=== PATIENT | male | born 1940 | race Native Hawaiian/Other Pacific Islander ===

== ENCOUNTER 2019-10-27 11:52 | Emergency (ER) | payer OTHER ==
[~2019-10-27] VITALS: Ht 157.5 cm; Wt 68.0 kg
[2019-10-27 13:00] LABS: PLATELET COUNT 253 K/uL (142-355)
[2019-10-27 13:22] LABS: POTASSIUM 4.3 mmol/L (3.6-5.2)
[2019-10-27 14:04] VITALS: BP 143/70; TEMP 98.9
== END 2019-10-27 14:21 | disposition home or self-care (01) ==
LOC: ED 11:52
PROVIDERS: Family Medicine
DX: M19.011 Primary osteoarthritis, right shoulder (principal); W01.198A Fall on same level from slipping, tripping and stumbling with subsequent striking against other object, initial encounter; Y92.098 Other place in other non-institutional residence as the place of occurrence of the external cause
CPT/HCPCS: 80053; 81000; 82550; 82553; 83605; 84484; 85027; 99283